=== PATIENT | female | born 2000 | race Hispanic/Latino ===

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

== ENCOUNTER 2022-05-20 14:12 | Emergency (ER) | payer OTHER ==
[~2022-05-20] VITALS: Ht 149.9 cm; Wt 45.4 kg
[2022-05-20 14:25] VITALS: BP 121/74
[2022-05-20] MEDS ORDERED: D-ME1POW16 PO (16:30)
[2022-05-20] MEDS ORDERED: GUAIFENESIN-DM 200/20 MG 10 ML PO ONE (16:30)
[2022-05-20] MEDS ORDERED: GUAIFENESIN-DM 200/20 MG 10 ML ONE (16:46)
== END 2022-05-20 16:56 | disposition home or self-care (01) ==
LOC: EDH 14:12
DX: J06.9 Acute upper respiratory infection, unspecified (principal); Z20.822 Contact with and (suspected) exposure to COVID-19
CPT/HCPCS: 99283; 87635; 87880; 87804 ×2; C9803